=== PATIENT | female | born 2000 | race Caucasian/White ===

== ENCOUNTER → 2020-02-28 | Day surgery (SDC) | payer OTHER | END | disposition home or self-care (01) | LOC: FRADUS-SUR 12:25 | PROVIDERS: ATTEND Surgery Surgical Oncology | PROC: 0HBU3ZX Excision of Left Breast, Percutaneous Approach, Diagnostic (ICD-10-PCS; principal; 2020-02-28) | DX: D24.2 Benign neoplasm of left breast (principal); N63.20 Unspecified lump in the left breast, unspecified quadrant | CPT/HCPCS: 19083; 87899; 88305-TC ==

== ENCOUNTER 2020-03-24 08:07 | Day surgery (SDC) | payer OTHER ==
[2020-03-23 12:26] VITALS: BMI 24.3
[2020-03-24] MEDS ORDERED: MIDAZOLAM HCL 2 MG/2 ML SINGLE DOSE VIAL ONE (10:08)
[2020-03-24] MEDS ORDERED: PROPOFOL 20 ML ONE (10:10)
[2020-03-24] MEDS ORDERED: LIDOCAINE HCL/PF 2% SDV 5ML VIAL ONE (10:10)
[2020-03-24] MEDS ORDERED: ONDANSETRON 4 MG/2 ML VIAL IVPUSH PRN ×2 (10:46→12:14)
[2020-03-24] MEDS ORDERED: KETOROLAC TROMETHAMINE 30 MG/1 ML VIAL IVPUSH PRN (10:46)
[2020-03-24] MEDS ORDERED: BUPIVACAINE HCL/PF 0.5% (5 MG/ML) 30 ML VIAL IJ ONE ×2 (10:51→11:47)
[2020-03-24] MEDS ORDERED: DEXTROSE 5%-0.45% SALINE 1,000 ML IV SCH (11:00)
[2020-03-24] MEDS ORDERED: KETOROLAC TROMETHAMINE 30 MG/1 ML VIAL ONE (11:34)
[2020-03-24] MEDS ORDERED: ONDANSETRON 4 MG/2 ML VIAL ONE (11:35)
[2020-03-24] MEDS ORDERED: DEXAMETHASONE SOD PHOSPHATE 4 MG/1 ML VIAL ONE (11:35)
[2020-03-24] MEDS ORDERED: GUM MASTIC/STORAX/MSAL/ALCOHOL 1 DRP DROPSBTL MC ONE (11:40)
[2020-03-24] MEDS ORDERED: oxyCODONE HCL 5 MG TABLET PO PRN ×2 (12:14)
[2020-03-24] MEDS ORDERED: PROMETHAZINE HCL 25 MG/1 ML VIAL IVPB PRN (12:14)
[2020-03-24 13:00] VITALS: BP 103/62; PULSE 80; TEMP 97.6
[2020-03-24] MEDS ORDERED: ACETAMINOPHEN 500 MG TABLET (FP) ONE (13:10)
== END 2020-03-24 13:34 | disposition home or self-care (01) ==
LOC: FASU 08:07
PROVIDERS: ATTEND Surgery Surgical Oncology
PROC: 0HBU0ZZ Excision of Left Breast, Open Approach (ICD-10-PCS; principal; 2020-03-24 11:17)
DX: D24.2 Benign neoplasm of left breast (principal)
CPT/HCPCS: 84703; 88305-TC; 94760